=== PATIENT | male | born 1980 | race Caucasian/White ===

== ENCOUNTER 2016-11-29 19:55 | Emergency (ER) | payer MEDICAID ==
[~2016-11-29] VITALS: Ht 170.2 cm; Wt 65.7 kg
[2016-11-29 20:00] VITALS: BP 117/79; PULSE 65; RESP 16; TEMP 98.2
[2016-11-29 20:13] VITALS: BP 117/79; PULSE 65; RESP 16; TEMP 98.2; O2SAT 99
--- NOTE | 2016-11-29 20:49 | PD ---
HPI Chief Complaint: Eye Problems/Injury Time Seen by Provider: 20:49 Travel History International Travel<30 days: No Contact w/Intl Traveler<30days: No Traveled to known affect area: No History of Present Illness HPI 36 year-old male presents to the emergency department for complaint of 2 days or more of difficulty with his vision. 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 Patient also with history of cataract of the left eye that has progressively worsened and has not been able to have a pathological intervention. Patient also has use of contact lens to right eye with reportedly normal vision otherwise. Patient has noted some loss of central vision over the past 2 days. Symptoms have not progressed but have not improved. Patient has not sought out medical attention until now. Patient is aware that he needs to establish with a costume specialist but has not had the opportunity to do so. Patient denies any eye pain or recent ocular injury. Patient has had no drainage or injection or erythema of the eye. Patient has had no lid edema. No fever or chills. Patient is not diabetic. Patient denies any history of connective tissue or autoimmune disorder. No family history of similar symptoms except for cataracts. Patient rates pain as 0/10 intensity. Patient has been experiencing floaters in the right eye. Patient has had no headache, double vision, difficulty with speech, confusion, upper or lower extremity numbness tingling or weakness or ataxia of gait. Patient takes no medications on a daily basis and denies any substance use. Patient does admit to tobacco use. [facility] Past Medical History Narrative Medical Retinal detachment, eye surgery, cataracts; tobacco use; nursing notes reviewed Social History Tobacco Use: Yes Allergies-Medications (Allergen,Severity, Reaction): Coded Allergies: No Known Allergies (Unverified , 11/29/16) Reported Meds & Prescriptions Reported Meds & Active Scripts Active No Active Prescriptions or Reported Medications Review of Systems General / Constitutional: No: Fever, Chills Eyes: Positive: Visual changes, No: Diploplia HENT: No: Headaches, Vertigo, Lightheadedness, Neck Pain Cardiovascular: No: Chest Pain or Discomfort Respiratory: No: Shortness of Breath Gastrointestinal: No: Nausea, Vomiting, Abdominal Pain Genitourinary: No: Flank Pain Musculoskeletal: No: Myalgias, Arthralgias Skin: No Rash Neurologic: No: Weakness, Dizziness, Syncope, Focal Abnormalities, Coordination Problem, Ataxia, Headache, Change in Mentation, Slurred Speech, Paresthesia Hematologic/Lymphatic: No: Easy Bruising Physical Exam Narrative GENERAL: Well-developed well-nourished male in no acute distress no respiratory distress GCS 15 SKIN: Warm and dry. HEAD: Atraumatic. Normocephalic. EYES: Pupils round; chronic anisocoria. Left cataract and on funduscopic exam only red reflex. Right funduscopic exam no obvious retinal detachment no papillary edema. No chemosis. No scleral icterus. No injection or drainage. Visual acuity right eye 20/70 both eyes 20/70 left eye greater than 20/200 on discern slight dark. No upper or lower lid edema erythema or tenderness. ENT: No nasal bleeding or discharge. Mucous membranes pink and moist. NECK: Trachea midline. No JVD. CARDIOVASCULAR: Regular rate and rhythm. RESPIRATORY: No accessory muscle use. Clear to auscultation. Breath sounds equal bilaterally. GASTROINTESTINAL: Abdomen soft, non-tender, nondistended. Hepatic and splenic margins not palpable. MUSCULOSKELETAL: Extremities without clubbing, cyanosis, or edema. No obvious deformities. NEUROLOGICAL: Awake and alert. No obvious cranial nerve deficits. Motor grossly within normal limits. Five out of 5 muscle strength in the arms and legs. No pronator drift. No limb ataxia. Negative Romberg. Normal speech. PSYCHIATRIC: Appropriate mood and affect; insight and judgment normal. Data Data Last Documented VS Vital Signs Date Time Temp Pulse Resp B/P Pulse Ox O2 Delivery O2 Flow Rate FiO2 11/29/16 21:41 66 16 98 11/29/16 21:40 118/74 Room Air 11/29/16 20:[address] Brain W/O Iv Contrast(Rout) (11/29/16 ) [facility] Medical Decision Making Medical Screen Exam Complete: Yes Emergency Medical Condition: Yes Medical Record Reviewed: Yes Interpretation(s) CT brain w/o: nad per Dr Mendenhall Vital Signs Date Time Temp Pulse Resp B/P Pulse Ox O2 Delivery O2 Flow Rate FiO2 11/29/16 20:38 65 18 11/29/16 20:13 98.2 65 16 117/79 99 11/29/16 20:00 98.2 65 16 117/79 Differential Diagnosis Visual disturbance, retinal detachment, central retinal vein occlusion, retinal artery occlusion, glaucoma, cataract, TIA Narrative Course Visual acuities right eye 20/70, both eyes 20/70, left eye >20/200 (only able to discern light-dark); bgm: 100; no fluorescein uptake Imaging study ordered Imaging study read as normal per reading radiologist Case discussed with costume specialist hydro generation supervisor will see in office in a.m. due to gradual onset of symptoms over the past 2 days or longer and will attempt to get patient into a retinal specialist tomorrow. Physician Communication Physician Communication call placed to ophthalmology hydro generation supervisor and case discussed with Dr Blake Caballero --will see in the office Saturday to call after 8AM to schedule appointment Diagnosis Primary Impression: Visual disturbance Additional Impressions: Cataract Qualified Code: H26.9 - Cataract of left eye, unspecified cataract type H/O retinal detachment Referrals: Alma Caballero MD 1 day call office at 8 AM Saturday11/30/16 to be seen in the AM Additional Instructions: Follow-up with costume specialist Dr. Caballero in a.m. Saturday11/30/16 call office at 8 AM to have her schedule an appointment for you in the a.m. at her recommendation Return to the emergency department for any acute change in vision or concerns Do not drive vehicle(s) while having any vision disturbance Med/Other Pt SpecificInfo: No Meds Exist/No RX given Scripts No Active Prescriptions or Reported Meds Disposition: 01 DISCHARGE HOME Condition: Stable Peg Shelton MD November 29, 2016 20:49
--- NOTE | 2016-11-29 21:19 | RADHPO ---
EXAM DATE/TIME: 11/29/2016 20:56 [facility] COMPARISON: No previous studies available for comparison. INDICATIONS : No vision in left eye for two days. RADIATION DOSE: 54.29 CTDIvol (mGy) MEDICAL HISTORY : Left retinal detachment three years ago. SURGICAL HISTORY : None. ENCOUNTER: Initial ACUITY: 2 days PAIN SCALE: 0/10 LOCATION: cranial TECHNIQUE: Multiple contiguous axial images were obtained of the head. Using automated exposure control and adj ustment of the mA and/or kV according to patient size, radiation dose was kept as low as reasonably a chievable to obtain optimal diagnostic quality images. FINDINGS: CEREBRUM: The ventricles are normal for age. No evidence of midline shift, mass lesion, hemorrhage or acute in farction. No extra-axial fluid collections are seen. POSTERIOR FOSSA: The cerebellum and brainstem are intact. The 4th ventricle is midline. The cerebellopontine angle i s unremarkable. EXTRACRANIAL: The visualized portion of the orbits is intact. SKULL: The calvaria is intact. No evidence of skull fracture. CONCLUSION: No acute disease. Eris Mendenhall MD FACR on November 29, 2016 at 21:17 Board Certified Radiologist. This report was verified electronically.
[2016-11-29 21:40] VITALS: BP 118/74; PULSE 66; RESP 16; O2SAT 98
[2016-12-13] MEDS ORDERED: ATRO1SOL11 RIGHT EYE (10:24)
[2016-12-13] MEDS ORDERED: PRED1SUS RIGHT EYE (10:24)
[2016-12-13] MEDS ORDERED: VIGA0.5D RIGHT EYE (10:24)
== END 2016-11-29 21:42 | disposition home or self-care (01) ==
LOC: PHED 19:55
DX: H53.9 Unspecified visual disturbance (principal); H26.9 Unspecified cataract; Z72.0 Tobacco use
CPT/HCPCS: 70450

== ENCOUNTER 2016-11-30 16:46 | Emergency (ER) | payer MEDICAID ==
[~2016-11-30] VITALS: Ht 170.2 cm; Wt 66.0 kg
[2016-11-30 16:47] VITALS: BP 113/77; PULSE 57; RESP 12; TEMP 98; O2SAT 100
--- NOTE | 2016-11-30 18:15 | PD ---
HPI Chief Complaint: Eye Problems/Injury Time Seen by Provider: 18:00 Travel History International Travel<30 days: No Contact w/Intl Traveler<30days: No Traveled to known affect area: No History of Present Illness HPI 36-year-old male presents for evaluation of right eye blurred vision started 3 days ago. He was seen today by slitting machine feeder Dr. Caballero, referred to slitting machine feeder Dr. Marrero. Dr. Marrero has referred him here. He describes it as just a generalized blurred vision in the right eye. 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 He has no other complaints at this time. No primary care physician. PFSH Past Medical History Diminished Hearing: No Tetanus Vaccination: < 5 Years Influenza Vaccination: No Past Surgical History Eye Surgery: Yes (retina) Social History Alcohol Use: No Tobacco Use: Yes (occu over 1 week ago) Substance Use: No Allergies-Medications (Allergen,Severity, Reaction): Coded Allergies: No Known Allergies (Unverified , 11/30/16) Reported Meds & Prescriptions Reported Meds & Active Scripts Active No Active Prescriptions or Reported Medications Review of Systems Except as stated in HPI: all other systems reviewed are Neg Physical Exam Narrative GENERAL: Well-developed well-nourished male in no acute distress SKIN: Warm and dry. HEAD: Atraumatic. Normocephalic. EYES: Right pupil is round and reactive to light. Left pupil is nonreactive, cataract noted. ENT: No nasal bleeding or discharge. Mucous membranes pink and moist. NECK: Trachea midline. No JVD. CARDIOVASCULAR: Regular rate and rhythm. No murmur appreciated. RESPIRATORY: No accessory muscle use. Clear to auscultation. Breath sounds equal bilaterally. GASTROINTESTINAL: Abdomen soft, non-tender, nondistended. MUSCULOSKELETAL: No obvious deformities. NEUROLOGICAL: Awake and alert. No obvious cranial nerve deficits. Motor grossly within normal limits. Normal speech. Data Data Last Documented VS Vital Signs Date Time Temp Pulse Resp B/P Pulse Ox O2 Delivery O2 Flow Rate FiO2 11/30/16 16:47 98.0 57 12 113/77 100 MDM Medical Decision Making Medical Screen Exam Complete: Yes Emergency Medical Condition: Yes Medical Record Reviewed: Yes Differential Diagnosis Retinal detachment, central retinal artery occlusion, CVA, central retinal vein occlusion, acute glaucoma, cataract Narrative Course Discussed with Dr. Marrero who will take this patient to surgery today. 2229: Dr. Marrero has arrived and informed me that this patient will not be able to get a large time tonight and so he will have the patient go home and return tomorrow at around 11 AM. Therefore the patient is stable for discharge , to return tomorrow likely for definitive surgery tomorrow. Diagnosis Primary Impression: Retinal detachment of right eye with single break Admitting Information Admitting Physician Requests: Observation Additional Instructions: As discussed, Dr. Marrero would like you to return to the emergency room at 11 AM tomorrow. Med/Other Pt SpecificInfo: No Change to Meds Scripts No Active Prescriptions or Reported Meds Disposition: 01 DISCHARGE HOME Condition: Stable Tono Carlos November 30, 2016 18:14
[2016-11-30] MEDS ORDERED: PHENYLEPHRINE HCL 10% OPTH SOLN 5 ML BTL RIGHT EYE SCH (19:00)
[2016-11-30] MEDS ORDERED: TROPICAMIDE 1% OPTH SOLN 2 ML BTL RIGHT EYE SCH (19:00)
[2016-11-30] MEDS ORDERED: PROPARACAINE HCL 0.5% OPHT SOLN 15 ML BTL RIGHT EYE SCH (19:00)
[2016-11-30] MEDS ORDERED: TROPICAMIDE 1% OPHT SOLN 15 ML BTL RIGHT EYE SCH (20:00)
[2016-12-01] MEDS ORDERED: DEXAMETHASONE SOD PHOS 4 MG/ML VIAL ONE (13:04)
[2016-12-01] MEDS ORDERED: STERILE WATER FOR INJ 20 ML VIAL ONE (13:04)
[2016-12-01] MEDS ORDERED: TRIAMCINOLONE ACETONIDE 40 MG/ML VIAL ONE (13:05)
[2016-12-01] MEDS ORDERED: TOBRAMYCIN/DEXAMETHASONE OPTH OINT 3.5 GM TUBE ONE (13:05)
[2016-12-01] MEDS ORDERED: ceFAZolin INJ 1,000 MG VIAL ONE (13:05)
[2016-12-01] MEDS ORDERED: TOBRAMYCIN 0.3%/DEXAMETHASONE 0.1% OPHT SUSP 5 ML BTL ONE (13:08)
[2016-12-01] MEDS ORDERED: *ONDANSETRON 4 MG VIAL PERIprocedural Use ONLY ONE ×3 (17:47→17:48)
[2016-12-13] MEDS ORDERED: PRED1SUS RIGHT EYE (10:24)
[2016-12-13] MEDS ORDERED: ATRO1SOL11 RIGHT EYE (10:24)
[2016-12-13] MEDS ORDERED: VIGA0.5D RIGHT EYE (10:24)
== END 2016-11-30 22:53 | disposition home or self-care (01) ==
LOC: NEPC 16:46 → CSDC 18:23 → HSDI 18:39 → CSDC 18:39
DX: H33.011 Retinal detachment with single break, right eye (principal)
CPT/HCPCS: 99283; J0690; J1100; J2405; J3301

== ENCOUNTER 2016-12-01 10:53 | Observation (INO) | payer MEDICAID ==
[~2016-12-01] VITALS: Ht 170.2 cm; Wt 66.0 kg
[~2016-12-01 10:53] MED LIST: LACTATED RINGER'S 1000 ML INJ 1,000 ML IV ONE; NEOSTIGMINE 3 MG/3 ML SYR IV ONE; ONDANSETRON HCL 4 MG/2 ML VIAL IV PUSH ONE; PROPOFOL 200 MG/20 ML AMP IV ONE; ePHEDrine/NS 25 MG/5 ML SYR IV ONE
[2016-12-01 10:54] VITALS: BP 111/72; PULSE 54; RESP 16; TEMP 97.8; O2SAT 100
--- NOTE | 2016-12-01 11:19 | PD ---
HPI Chief Complaint: Eye Problems/Injury Time Seen by Provider: 11:10 Travel History International Travel<30 days: No Contact w/Intl Traveler<30days: No Traveled to known affect area: No History of Present Illness HPI This is a 36-year-old male with history of right eye blurred vision for the past 4 days. He was initially seen at [facility] and referred to ice cream freezer Dr. Caballero. He was referred to Dr. Marrero for retinal detachment. The patient was initially sent here yesterday for definitive repair however he was eventually sent home and advised to return today. He now returns today likely for definitive repair of his right eye. He continues to have blurred vision in the right eye. Denies any pain. 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 He has no other complaints. PFSH Past Medical History Hx Anticoagulant Therapy: No Cardiovascular Problems: No Chemotherapy: No Cerebrovascular Accident: No Diabetes: No Diminished Hearing: No Respiratory: No Past Surgical History Eye Surgery: Yes (retina) Social History Alcohol Use: No Tobacco Use: Yes (occu over 1 week ago) Substance Use: No Allergies-Medications (Allergen,Severity, Reaction): Coded Allergies: No Known Allergies (Unverified , 11/30/16) Reported Meds & Prescriptions Reported Meds & Active Scripts Active No Active Prescriptions or Reported Medications Review of Systems General / Constitutional: No: Fever, Chills Eyes: Positive: Blurred Vision, No: Photophobia, Foreign Body Sensation, Pain HENT: No: Headaches Physical Exam Narrative GENERAL: Well-developed well-nourished male in no acute distress SKIN: Warm and dry. HEAD: Atraumatic. Normocephalic. EYES: Pupils equal and round. Right eye is reactive, extraocular muscles are intact. Left eye is nonreactive, cataract is visible. ENT: No nasal bleeding or discharge. Mucous membranes pink and moist. NECK: Trachea midline. No JVD. CARDIOVASCULAR: Regular rate and rhythm. No murmur appreciated. RESPIRATORY: No accessory muscle use. Clear to auscultation. Breath sounds equal bilaterally. Data Data Last Documented VS Vital Signs Date Time Temp Pulse Resp B/P Pulse Ox O2 Delivery O2 Flow Rate FiO2 12/01/16 12:00 98.0 49 16 124/75 98 Room Air Orders Iv Access Insert/Monitor (12/01/16 11:55) [facility] Medical Decision Making Medical Screen Exam Complete: Yes Emergency Medical Condition: Yes Medical Record Reviewed: Yes Differential Diagnosis Detachment, acute glaucoma, central retinal artery occlusion, central retinal vein occlusion, vitreous hemorrhage Narrative Course 36-year-old male who returns here at the request of Dr. Marrero for right eye retinal detachment definitive repair. We will contact Dr. Marrero. Dr. Marrero came and saw the patient and is taking him to the operating room. Diagnosis Primary Impression: Retinal detachment of right eye with single break Scripts No Active Prescriptions or Reported Meds Tono Carlos December 01, 2016 11:19
[2016-12-01 12:00] VITALS: BP 124/75; PULSE 49; RESP 16; TEMP 98; O2SAT 98
[2016-12-01] MEDS ORDERED: TOBRAMYCIN SULF 0.3% OPHT SOLN 5 ML BTL RIGHT EYE ONE (14:42)
[2016-12-01] MEDS ORDERED: BUPIVACAINE HCL PF 0.75% 10 ML VIAL ONE (14:42)
[2016-12-01] MEDS ORDERED: EPINEPHrine HCL (1:1000) 1 MG/ML VIAL OTHER ONE (14:42)
[2016-12-01] MEDS ORDERED: BALANCED SALT SOLN OPHT IRRIG 15 ML BTL ONE (14:42)
[2016-12-01] MEDS ORDERED: ACETAMINOPHEN 1000 MG/100 ML VIAL IV ONE (14:42)
[2016-12-01] MEDS ORDERED: DEXAMETHASONE SOD PHOS 4 MG/ML VIAL OTHER ONE (14:42)
[2016-12-01] MEDS ORDERED: TOBRAMYCIN SULFATE 0.3% OPTH OINT 3.5 GM TUBE RIGHT EYE ONE (14:42)
[2016-12-01] MEDS ORDERED: ceFAZolin INJ 1,000 MG VIAL IV ONE (14:42)
[2016-12-01] MEDS ORDERED: ONDANSETRON HCL 4 MG/2 ML VIAL IV PUSH ONE (17:49)
[2016-12-01] MEDS ORDERED: fentaNYL CITRATE 250 MCG/5 ML AMP ONE (17:51)
[2016-12-01] MEDS ORDERED: STERILE WATER FOR INJ 20 ML VIAL ONE (18:00)
[2016-12-01] MEDS ORDERED: TROPICAMIDE 1% OPHT SOLN 15 ML BTL ONE (18:00)
[2016-12-01] MEDS ORDERED: TROPICAMIDE 1% OPTH SOLN 2 ML BTL RIGHT EYE ONE (18:00)
[2016-12-01] MEDS ORDERED: DO NOT ADM ANY ANTICOAGULANT DRUGS PRN (18:15)
[2016-12-01] MEDS ORDERED: ACETAMINOPHEN/HYDROcodone 325 MG/5 MG TAB PO PRN (18:30)
[2016-12-01 18:48] VITALS: BP 101/57; PULSE 77; RESP 16; TEMP 99; O2SAT 97
[2016-12-01] MEDS ORDERED: ATROPINE SULFATE 1% OPHT SOLN 2 ML BTL RIGHT EYE SCH (20:00)
[2016-12-13] MEDS ORDERED: PRED1SUS RIGHT EYE (10:24)
[2016-12-13] MEDS ORDERED: ATRO1SOL11 RIGHT EYE (10:24)
[2016-12-13] MEDS ORDERED: VIGA0.5D RIGHT EYE (10:24)
--- NOTE | 2016-12-19 09:44 | MP ---
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 PROCEDURE Retinal detachment repair of the scleral buckle with encircling element, cryotherapy, suprachoroidal drainage, C3F8 intraocular gas injection in the right eye. ANESTHESIA General. BLOOD LOSS Less than 5 mL PROCEDURE IN DETAIL The patient was evaluated in the preoperative holding area. Informed consent was secured. The operative eye was identified and marked. The patient was then taken to the operating room and placed on the operating table in the supine position. The operative eye was identified and agreed upon by the operating room staff in "time out". The patient was then prepped and draped in the usual sterile manner for retinal surgery. A eyelid speculum was then placed on the operative eye. Attention was the directed to the limbus where a 360 degree limbal peritomy was fashioned. Attention was then directed to the isolation of the recti muscles which were sequentially isolated utilizing muscle hooks including the superior, medial, inferior, then lateral rectus muscles. When it was clear that the muscles were isolated, a serrated muscle hook with a 4-0 silk suture was passed under the muscle and knotted in place with tractional control of the globe during the procedure. The same was accomplished for all four aforementioned recti muscles. The tractional sutures remained in place throughout the entire procedure. The scleral bed was then inspected and noted to be in good condition. The retina was then examined with an indirect ophthalmoscope and a 20 diopter lens and the previously noted detachment was appreciated. Break localization ensued: Despite scleral depression under general anesthesia clear identification of the cause of the subretinal fluid was not ascertained. This influenced the placement of a 360 degree encircling element due to previously completed panretinal photocoagulation laser in the right eye in the past and his noted retinal detachment and his limited vision left eye. At this point, further consideration was given to the retinal buckling element and it was determined that a 279 symmetrical silicone tire would be utilized for placement over the temporal l00 degrees of the sclera centered beneath the lateral rectus muscle (temporal retina). The 279 tire was secured with a #40 (2.0 mm) circling silicone band that was cinched in the superior nasal space between the superior and nasal recti with a #270 silicone sleeve. Drainage: Removal of suprachoroidal/subretinal fluid was accomplished a careful cut down of the sclera which was accomplished with a inaja blade in the 8 o'clock [place] inferior to the temporal subretinal fluid, that will lay beneath the buckling element. The initiation of drainage was accomplished with piercing of the exposed choroidal knuckle with a diathermy needle. Gas: A non-expansion concentration of C3F8 gas drawn up in a 60 mL syringe through a Millipore filter. This was injected under indirect ophthalmoscope visualization 4 mm from the limbus at the inferior temporal aspect of the globe. Buckling element: The buckling elements which were previously soaked in an antibiotic solution, Ancef, were then measured and pre-placed by centering them under the lateral rectus muscle. Temporary ties with 4-0 [place] sutures were put in place and the symmetrical buckling element was noted to cover 90-100% of the temporal retina/scleral area. Cryotherapy was then applied to the temporal peripheral region to cover the source of the subretinal fluid and breaks. In the buccal position, relative to the subretinal fluid was then reexamined and the buccal was determined under indirect ophthalmoscopic evaluation to be in good position and the sutures were therefore tightened and tied. Traction sutures were removed from the recti muscle. The extraocular muscles were repositioned and the conjunctiva brought to its normal anatomical position. The subconjunctival space/scleral bed was copiously rinsed with antibiotic solution. The conjunctiva was then closed with 7-0 absorbable chromic gut sutures. The conjunctiva was then injected inferiorly with Decadron. The retina was inspected at this point with the indirect ophthalmoscope and a 20 diopter lens and a posterior buckling effect was noted. A gas bubble was noted in the posterior chamber. The retina was noted to be attached and no subretinal fluid was appreciated at this time. was utilized to measure the extraocular measure and there was noted to be 11 mmHg with a 7.5 mg weight. The eye was then injected with Ancef and then patched with Maxitrol ointment and a shield was in place with an arrow on the patch to indicate subsequent positioning for optimal retinal tamponade with gas bubble in the intraocular space. The patient was awakened from general anesthesia without difficulty and the patient was taken to the post anesthesia care area in good condition. MD AJIT Tai/ /7:50 PM /9:04 AM
== END 2016-12-01 18:50 | disposition home or self-care (01) ==
LOC: NEPC 10:53 → HSDI 12:28
PROVIDERS: ADMIT Ophthalmology; ATTEND Ophthalmology
DX: H33.21 Serous retinal detachment, right eye (principal); H54.42 Blindness, left eye, normal vision right eye; F17.210 Nicotine dependence, cigarettes, uncomplicated
CPT/HCPCS: 00145; 67107; 99284; G0378; J0131; J0171; J0690; J1100; J2405; J2710; J3010; J7120